=== PATIENT | male | born 1950 | race Caucasian/White ===

== ENCOUNTER → 2017-06-28 | Outpatient (CLI) | payer MEDICARE ==
--- NOTE | 2017-06-28 08:39 | CT ---
EXAMINATION TYPE: CT iac wo con DATE OF EXAM: 06/28/2017 COMPARISON: NONE HISTORY: Lt ear pain CT DLP: 150 mGycm. Automated Exposure Control for Dose Reduction was Utilized. TECHNIQUE: CT scan of internal auditory canal is performed without contrast, thin cut axial images ar e obtained, coronal reformatted images are also reviewed. FINDINGS: The external auditory canals are patent bilaterally. Mastoid air cells show no evidence of abnormal opacification bilaterally. The middle ear ossicles are symmetric and unremarkable. There is no evidence of suspicious surrounding soft tissue density to suggest cholesteatoma. The scutum is preserved bilaterally. The cochlea and the semicircular canals are symmetric and unremarkable. Ves tibular aqueduct and internal carotid canal appear unremarkable. Temporomandibular joints are maintained bilaterally. Visualized paranasal sinuses are grossly clear other than minimal mucosal thickening within the maxillary sinuses. There is slight leftward nasal se ptal deviation and a small leftward nasal spur. Visualized portion brain parenchyma is felt within no rmal limits, although the exam was not optimized for evaluation of the intracranial structures. Minim al atherosclerosis is seen of the internal carotid arteries. IMPRESSION: Minimal maxillary mucosal thickening, otherwise unremarkable internal auditory canal CT. No significant abnormality seen to account for patient's symptoms.
== END | disposition home or self-care (01) ==
LOC: RADCTMAIN 07:49
PROVIDERS: ATTEND Family Medicine
DX: J34.89 Other specified disorders of nose and nasal sinuses (principal); H92.02 Otalgia, left ear
CPT/HCPCS: 70480

== ENCOUNTER → 2017-09-06 | Outpatient (CLI) | payer MEDICARE ==
--- NOTE | 2017-09-06 14:18 | XR ---
EXAMINATION TYPE: XR cervical spine comp DATE OF EXAM: 09/06/2017 COMPARISON: NONE HISTORY: 67 year-old male chronic pain and stiffness, cervicalgia TECHNIQUE: 6 views FINDINGS: No predental space widening or prevertebral soft tissue swelling. There is facet arthropathy througho ut with grade 1 anterolisthesis at C4-C5. Moderate disc/endplate degenerative change mid to lower cer vical spine particularly from C5 through C7 levels. On the right, this results in moderate bony spondylotic neuroforaminal narrowing from C4 to C5 and C5 -C6 and possibly moderate to severe at C6-C7 and C7-T1. Mild at T3-C4. On the left, there may be severe bony neuroforaminal narrowing at C5-C6 and moderate at C6-C7 and C3- C4. There may be an additional grade 1 anterolisthesis at C7-T1 on the swimmer's view. No odontoid view. IMPRESSION: Moderate to advanced spondylotic change. Grade 1 anterolistheses at C5-C6 and C7-T1. Variable moderat e to severe neuroforaminal stenoses are suggested, particularly on the left.
== END | disposition home or self-care (01) ==
LOC: RADXRYALE 12:41
PROVIDERS: ATTEND Nurse Practitioner Family
DX: M43.13 Spondylolisthesis, cervicothoracic region (principal); M47.812 Spondylosis without myelopathy or radiculopathy, cervical region
CPT/HCPCS: 72050

== ENCOUNTER → 2018-03-01 | Outpatient (CLI) | payer MEDICARE ==
[2018-03-01 12:13] LABS: Basophils % (A) 0 %; Eosinophils # (A) 0.1 k/uL (0-0.7); Eosinophils % (A) 2 %; HCT 41.6 % (39.0-53.0); HGB 13.6 gm/dL (13.0-17.5); Lymphocytes # (A) 2.5 k/uL (1.0-4.8); Lymphocytes % (A) 27 %; MCH 28.6 pg (25.0-35.0); MCHC 32.7 g/dL (31.0-37.0); MCV 87.5 fL (80.0-100.0); Mean Platelet Volume 6.6; Monocytes # (A) 0.4 k/uL (0-1.0); Monocytes % (A) 4 %; Neutrophils # (A) 5.9 k/uL (1.3-7.7); Neutrophils % (A) 64 %; Platelet Count 443 k/uL (150-450); RBC 4.75 m/uL (4.30-5.90); RDW 13.1 % (11.5-15.5); WBC 9.1 k/uL (3.8-10.6)
[2018-03-01 12:14] LABS: Appearance,Urine Clear (Clear); Bilirubin,Urine Negative (Negative); Blood,Urine Negative (Negative); Color,Urine Yellow; Glucose,Urine (UA) Negative (Negative); Ketones,Urine Negative (Negative); Leukocyte Esterase,Urine Negative (Negative); Nitrite,Urine Negative (Negative); PH, Urine 5.5 (5.0-8.0); Protein,Urine Negative (Negative); Specific Gravity,Urine 1.017 (1.001-1.035); Urobilinogen,Urine <2.0 mg/dL (<2.0)
[2018-03-01 12:25] LABS: Anion Gap 11 mmol/L; Blood Urea Nitrogen 11 mg/dL (9-20); Calcium 10.1 mg/dL (8.4-10.2); Carbon Dioxide 28 mmol/L (22-30); Chloride 104 mmol/L (98-107); Glucose 192 mg/dL (74-99); Sodium 143 mmol/L (137-145)
== END | disposition home or self-care (01) ==
LOC: LABPAT 11:18
PROVIDERS: ATTEND Orthopaedic Surgery Orthopaedic Surgery of the Spine
DX: Z01.812 Encounter for preprocedural laboratory examination (principal); M48.02 Spinal stenosis, cervical region
CPT/HCPCS: 36415; 80048; 81003; 85025; 85610; 85730; 86850; 86900; 86901

== ENCOUNTER 2018-03-09 08:49 | Inpatient (IN) | payer MEDICARE ==
[2018-02-24 10:55] VITALS: BMI 34.4
[~2018-03-09 08:49] MED LIST: BACITRACIN 50,000 UNIT, POLYMYXIN B 500,000 UNIT in SODIUM CHLORIDE 0.9% IRRIGATIO 1,00... IRRIGATION ONE; HYDROmorphone 0.5 MG/0.5 ML SYRINGE IVP PRN; MORPHINE SULFATE 4 MG/ML SYRINGE IV PRN; ONDANSETRON 4 MG/2 ML VIAL IVP PRN; ceFAZolin IN SWFI 2 GM/20 ML SYRINGE IVP ONE
[2018-03-09] MEDS: LACTATED RINGERS 1,000 ML IV SCH (10:17)
[2018-03-09] MEDS ORDERED: LIDOCAINE 1% 20 ML VIAL (10MG/ML) FOR IV START INTRADERMA ONE (10:18)
[2018-03-09] MEDS ORDERED: SUCCINYLCHOLINE CHLORIDE 100 MG/5 ML SYR IV ONE (11:56)
[2018-03-09] MEDS ORDERED: ROCURONIUM BROMIDE 10 MG/ML 10 ML VIAL IV ONE (11:56)
[2018-03-09] MEDS ORDERED: PROPOFOL 10 MG/ML 20 ML VIAL IV ONE (11:56)
[2018-03-09] MEDS ORDERED: PHENYLEPHRINE-0.9% NACL SYG 1 MG/10 ML SYRINGE ONE (11:56)
[2018-03-09] MEDS ORDERED: fentaNYL (PF) 50 MCG/ML 2 ML AMP ONE (11:56)
[2018-03-09] MEDS ORDERED: MIDAZOLAM 2 MG/2 ML VIAL ONE (11:56)
[2018-03-09] MEDS ORDERED: LIDOCAINE 1% INJ 10MG/ML (20 ML MDV) ONE (11:56)
[2018-03-09] MEDS ORDERED: BUPIVACAINE (PF) 0.25% 30 ML VIAL SQ ONE (12:30)
[2018-03-09] MEDS ORDERED: THROMBIN (BOVINE) 5,000 UNIT VIAL TOPICAL ONE (12:30)
[2018-03-09] MEDS ORDERED: GELATIN SPONGE,ABSORB (LARGE) 1 EACH SPONGE MISCELLANE ONE (12:30)
[2018-03-09] MEDS ORDERED: LACTATED RINGERS 1,000 ML IV ONE (14:05)
[2018-03-09] MEDS ORDERED: DIAZEPAM 5 MG TAB PO PRN (14:17)
[2018-03-09] MEDS ORDERED: MORPHINE SULFATE 4MG/4ML SYRG IVP PRN ×2 (14:17)
[2018-03-09] MEDS ORDERED: BENZOCAINE/MENTHOL LOZENG 1 EACH LOZENGE MUCOUS MEM PRN (14:17)
[2018-03-09] MEDS ORDERED: MAGNESIUM HYDROXIDE 2,400 MG/10 ML CUP PO PRN (14:17)
[2018-03-09] MEDS ORDERED: ACETAMINOPHEN TAB 325 MG TAB PO PRN (14:19)
[2018-03-09] MEDS ORDERED: ONDANSETRON 4 MG/2 ML VIAL IVP PRN (14:19)
[2018-03-09] MEDS ORDERED: BENZONATATE 100 MG CAP PO PRN (14:20)
[2018-03-09] MEDS ORDERED: HYDROcodone/APAP 7.5-325MG 1 EACH TAB PO PRN (14:20)
--- NOTE | 2018-03-09 14:26 | P.OP ---
Date of Procedure: 03/09/18 Preoperative Diagnosis: Cervical stenosis C 4 5 C5 6 C6 7 Spondylolisthesis C4 5 Herniated nucleus pulposis C5 6 C6 7 Neck pain with upper extremity radiculopathy Degenerative disc disease Postoperative Diagnosis: Same Anesthesia: GETA Pathology: none sent Condition: stable Disposition: PACU Description of Procedure: BRIEF OPERATIVE NOTE Preoperative Diagnosis: Cervical stenosis C4 5 C5 6 C6 7, spondylolisthesis C4 5 , degenerative disc disease C4 5 C5 6 C6 7, herniated nucleus poses C5 6 C6 7, neck pain with upper extremity radiculopathy Postoperative Diagnosis: Same Procedure: Anterior cervical decompression with discectomy and fusion C4 5 C5 6 C6 7 Placement of interbody graft C4 5 C5 6 C6 7 Application of anterior cervical plateC4 5 C5 6 C6 7 Surgeon: Dr. Suresh Dramatic Art Teacher: Victor Hugo Butterfield is present throughout the entire the case persistence during positioning, dissection, exposure, visualization, and all crucial elements of the case as well as closure. Anesthesia: General anesthesia Estimated blood loss: Approximately 75 mL Complications: None apparent Components implanted: K2M [place] anterior cervical plate system with 8 screws measuring 3.5 mm with Vikos interbody allograft bone graft Di sposition: To recovery room in good stable condition. OPERATIVE INDICATIONS The patient has had long-standing issues in their neck and upper extremities. he was found have a dynamic spinal listhesis C4 5 with severe disc degeneration C4 5 C5 6 C6 7 and herniation and her stenosis at C4 5 C5 6 and C6 7. The sinus correlated well with his neck and upper extremity symptoms. He was having worsening of his symptoms despite conservative treatment. The patient has been through conservative treatment. We discussed various treatment options including surgery, and the patient wishes to proceed with surgery We discussed the risk, patient's alternatives and benefits of surgery including but not limited to, risk of bleeding risk of infection, risk of need for further surgery, risk of decreased, loss of motion, muscle function, malunion nonunion, hardware failure, nerve damage, paralysis, heart attack, and . OPERATIVE SUMMARY After discussing all the risks, patient alternatives and benefits at length, the patient elected to proceed with surgical intervention, signed informed consent, and presented for their procedure. The patient was seen and examined in the preoperative holding area and the surgical site was marked. The patient was given antibiotics and brought to the operating room. The patient was positioned on the operating room table in a supine position being careful to pad any bony prominences and pressure points. The patient was sedated and intubated by anesthesia in standard fashion. Once the airway and C- spine were stabilized the patient's arms were padded and tucked at her side, with her shoulders gently taped. The head was placed in a donut pad with the neck in good neutral alignment and position. We were careful to maintain the patient's cervical spine and good neutral alignment and position throughout. The patient was prepped and draped in a normal standard fashion. An appropriate timeout and keystone protocol performed. We were able to proceed with the surgery. The local wound area was infiltrated with local anesthetic. An incision was made transversely approximately 2-1/2 cm over the appropriate levels C4 5 C5 6 C6 7. Dissection was taken down subcutaneously to the level of the platysma which was split in line with its fibers. Dissection was taken with a carotid approach, with the trachea and esophagus medial and the carotid sheath laterally. We dissected down to the anterior surface of the vertebral bodies. Intraoperative x-ray was taken which showed a marker at the appropriate levelat C5 6 . With the appropriate level positively confirmed, we were able to proceed with discectomy at the appropriate levels. All of the operative levels were exposed appropriately. The patient had all their twitches back, and there was no evidence of recurrent laryngeal issue. The wound was copiously irrigated and suctioned dry as had been done periodically throughout the case. At the appropriate level/levels, C4 5 C5 6 C6 7 I established an annulotomy with an 11 blade scalpel. A discectomy was performed with a combination of pituitary rongeurs, curettes, a high-speed bur, and Kerrison rongeurs. The posterior longitudinal ligament was taken down as were any posterior osteophytes. note was made of severe disc degeneration particular at C5 6 and C6 7 with disc herniation. There is evidence of stenosis at each level. I was able to take down the compression centrally and at the bilateral neural foramen at each of the levels starting at C4 5 and then at C5 6 and then at C6 7. This gave good central and bilateral foraminal decompression. There is no evidence of any dural tear or leak. The endplates were prepared with a high-speed bur. With the endplates in good parallel position, I was able to size for the appropriate size interbody graft. The wound was irrigated and suctioned dry the graft was prepared and malleted into position. It had good alignment and position with the anterior surface flush with the anterior surface of the vertebral bodies. This was done similarly the appropriate levels C4 5 C5 6 C6 7. With the grafts intact, I was able to measure and contour and appropriate sized plate. The plate was positioned at the midline over the appropriate levelsC4 5 C5 6 C6 7. Screw holes were established with a hand drill and drill guide. Screws were placed in good alignment and position with excellent bony purchase. They were seated under the locking device. The construct was checked and found to be stable. Intraoperative x-ray was taken which showed good alignment and position of the implants at the appropriate levels. There was no evidence of any dural tear or leak. Good hemostasis was maintained. The wound was copiously irrigated and suctioned dry as had been done periodically throughout the case. The platysma was closed with absorbable suture. The subcutaneous tissue was closed. The subcuticular tissue was closed with absorbable suture. The wound was cleaned and dried and dressed appropriately. A soft cervical collar was placed appropriately. The patient was woken up by anesthesia, extubated, transferred back gently to their hospital bed and brought to the recovery room in good stable condition. The patient will be admitted to the hospital for appropriate postoperative care , medical management and monitoring. We will continue to follow them closely about the postoperative course.
--- NOTE | 2018-03-09 14:29 | XR ---
EXAMINATION TYPE: XR cervical spine 1V DATE OF EXAM: 03/09/2018 COMPARISON: NONE HISTORY: Hardware placement TECHNIQUE: Cross table cervical spine FINDINGS: Exam is limited due to the patient's shoulders. A plate is present starting at C4 level ext ending to the C5 level. The lower aspect cannot be visualized. Note is made of an endotracheal tube. IMPRESSION: 1. Placement of an anterior cervical fusion plate. The lower portion cannot be visualized due to antonio ulder artifact.
--- NOTE | 2018-03-09 14:37 | XR ---
EXAMINATION TYPE: XR cervical spine 1V DATE OF EXAM: 03/09/2018 COMPARISON: NONE HISTORY: Hardware placement TECHNIQUE: Lateral cervical spine FINDINGS: Metallic device is directed towards C5-6 disc space. Shoulders creating artifact beginning at approximately this level. IMPRESSION: 1. Metallic needle directed towards the C5-6 disc space.
[2018-03-09 14:47] VITALS: RESP 16
[2018-03-09] MEDS: fentaNYL (PF) 50 MCG/ML 2 ML AMP IVP ONE ×2 (15:05→15:34)
[2018-03-09] MEDS: diphenhydrAMINE 50 MG/ML 1 ML VIAL IVP ONE ×2 (15:06→15:34)
[2018-03-09] MEDS: SODIUM CHLORIDE 0.9% 1,000 ML IV SCH (16:42)
[2018-03-09] MEDS: HYDROcodone/APAP 5-325MG 1 EACH TAB PO PRN (19:20)
[2018-03-09] MEDS: ceFAZolin IN SWFI 2 GM/20 ML SYRINGE IVP SCH (19:58)
[2018-03-10] MEDS: SODIUM CHLORIDE 0.9% 1,000 ML IV SCH (01:55)
[2018-03-10] MEDS: LACTATED RINGERS 1,000 ML IV SCH (01:56)
[2018-03-10] MEDS: HYDROcodone/APAP 5-325MG 1 EACH TAB PO PRN (03:35)
[2018-03-10] MEDS: ceFAZolin IN SWFI 2 GM/20 ML SYRINGE IVP SCH (03:35)
[2018-03-10 08:15] VITALS: BP 135/79; PULSE 79; TEMP 98.8
[2018-03-10] MEDS ORDERED: B COMPLEX-VIT C-VIT E-ZINC 1 EACH TAB PO SCH (09:00)
[2018-03-10] MEDS ORDERED: SENNOSIDES-DOCUSATE SODIUM 1 EACH TAB PO SCH (09:00)
[2018-03-10] MEDS ORDERED: ATENOLOL 50 MG TAB PO SCH (09:00)
[2018-03-10] MEDS ORDERED: CHOLECALCIFEROL 1,000 UNIT TAB PO SCH (09:00)
--- NOTE | 2018-03-10 10:10 | P.DS ---
Providers Date of admission: 03/09/18 08:49 Attending physician: Agnieszka Suresh Primary care physician: [facility] Course: The patient presented on the day of admission as per his operative note. She underwent anterior cervical decompression with discectomy and fusion at C4 5 C5 6 and C6 7 for his spondylolisthesis, spinal stenosis and disc degeneration with herniation and upper extremity radiculopathy. He feels he is making good progress. His arm has had some slight improvement though he still has some numbness over his left arm. He is able to ambulate and he is tolerating his soft diet appropriately. His pains controlled with oral medications. Physical Exam The incision site is clean dry and intact. There is no erythema no drainage. There is no purulence no evidence of infection. His neck is soft and supple. There is no drainage on the dressing. Abdomen soft and nontender. Chest has good excursion with deep inspiration and expiration. The patient has active and passive range of motion intact at the upper and lower extremities. There is no acute change in neurologic status. He has good strength and range of motion of his upper extremity's bilaterally Hospital Course Postoperative day #1 status post anterior cervical decompression with discectomy and fusion at C4 5 C5 6 and C6 7 for his cervical stenosis with disc degeneration and spinal listhesis with upper extremity radiculopathy. He is making some progress with surgery thus far and feels comfortable with his recovery process. The patient has been making good progress postoperatively. They have completed the prophylactic antibiotics without any signs or symptoms of infection. The patient has been able to advance their diet, and is tolerating diet adequately. The pain was initially controlled with IV medications and is now controlled appropriately with oral medications. The patient has been able to increase their mobilization. The patient has progressed appropriately. I think they are in good stable condition for discharge today. They will be sent home with appropriate prescriptions. I answered their questions to the best of my ability in a language that they can understand and they are agreeable with the plan. They will follow up as directed in approximately 2 weeks or sooner if he is having any problems. Patient Condition at Discharge: Good Plan - Discharge Summary Discharge Rx Participant: Yes New Discharge Prescriptions: No Action Vitamin B Complex 1 cap PO DAILY HYDROcodone/APAP 7.5-325MG [[place] 7.5-325] 1 tab PO TID PRN PRN Reason: Pain Benzonatate [Tessalon Perles] 100 mg PO DAILY PRN PRN Reason: Cough Cholecalciferol (Vitamin D3) [Vitamin D3] 2,000 unit PO DAILY Atenolol [Tenormin] 50 mg PO DAILY Discharge Medication List Vitamin B Complex 1 cap PO DAILY 12/03/14 [History] HYDROcodone/APAP 7.5-325MG [[place] 7.5-325] 1 tab PO TID PRN 12/04/14 [History] Benzonatate [Tessalon Perles] 100 mg PO DAILY PRN 02/24/18 [History] Cholecalciferol (Vitamin D3) [Vitamin D3] 2,000 unit PO DAILY 02/24/18 [History] Atenolol [Tenormin] 50 mg PO DAILY 03/09/18 [History] Follow up Appointment(s)/Referral(s): Agnieszka Suresh DO [Doctor of Osteopathic Medicine] - 2 Weeks Activity/Diet/Wound Care/Special Instructions: keep site clean may shower with waterproof dressing intact. Do not soak in a tub. On Wednesday May shower with area uncovered, but leave Steri-Strips intact and allow them to fray off on their own. Avoid heavy or rigorous activity No overhead work No repetitive bending twisting or lifting May ambulate to tolerance Discharge Disposition: HOME SELF-CARE
== END 2018-03-10 11:15 | disposition home or self-care (01) | DRG 473 ==
LOC: 2ORMAIN 08:49 → 3SUR 15:57
PROVIDERS: ADMIT Orthopaedic Surgery Orthopaedic Surgery of the Spine; ATTEND Orthopaedic Surgery Orthopaedic Surgery of the Spine
PROC: 0RG20A0 Fusion of 2 or more Cervical Vertebral Joints with Interbody Fusion Device, Anterior Approach, Anterior Column, Open Approach (ICD-10-PCS; principal; 2018-03-09 10:45)
PROC: 0RG40A0 Fusion of Cervicothoracic Vertebral Joint with Interbody Fusion Device, Anterior Approach, Anterior Column, Open Approach (ICD-10-PCS; principal; 2018-03-09 10:45)
PROC: 0RT50ZZ Resection of Cervicothoracic Vertebral Disc, Open Approach (ICD-10-PCS; principal; 2018-03-09 10:45)
DX: M48.02 Spinal stenosis, cervical region (principal); I10 Essential (primary) hypertension; M43.12 Spondylolisthesis, cervical region; M50.121 Cervical disc disorder at C4-C5 level with radiculopathy; Z79.891 Long term (current) use of opiate analgesic; Z79.899 Other long term (current) drug therapy; Z88.0 Allergy status to penicillin; Z91.041 Radiographic dye allergy status; Z96.653 Presence of artificial knee joint, bilateral; Z82.49 Family history of ischemic heart disease and other diseases of the circulatory system; Z87.891 Personal history of nicotine dependence; Z88.5 Allergy status to narcotic agent; Z91.013 Allergy to seafood; M79.7 Fibromyalgia
CPT/HCPCS: 72020; 86850; 86900; 86901

== ENCOUNTER → 2019-11-14 | Outpatient (CLI) | payer MEDICARE ==
--- NOTE | 2019-11-14 11:32 | FL ---
EXAMINATION TYPE: FL barium swallow w video DATE OF EXAM: 11/14/2019 MODIFIED SWALLOW / DEGLUTITION STUDY CLINICAL HISTORY: Dysphagia since neck surgery March 09, 2018. TECHNIQUE: Deglutition study is performed utilizing thin liquid barium, honey and nectar thick liqui d barium, barium thick applesauce, and barium coated cracker. Total 1 minute 14 seconds of fluoroscop ic time provided. 0 spot images saved to PACS. COMPARISON: None. FINDINGS: The oral and pharyngeal phases show satisfactory initiation with slightly diminished epiglo ttic inversion and prominent proximal trachea noted. Satisfactory mastication is seen with solid moda lities tested. There are 2 episodes of deep penetration with thin liquid barium. Other modalities sh owed no penetration or aspiration. No significant pharyngeal residue was appreciated. Partial visuali zation of surgical change cervical spine beginning C4 level. IMPRESSION: 2 episodes of penetration with thin liquid barium. No other aspiration is observed. Plea se refer to speech therapist notes for further details if necessary.
== END | disposition home or self-care (01) ==
LOC: RADFLMAIN 10:39
PROVIDERS: ATTEND Family Medicine
DX: R13.10 Dysphagia, unspecified (principal)
CPT/HCPCS: 74230

== ENCOUNTER 2019-12-19 07:30 | Day surgery (SDC) | payer MEDICARE ==
[2019-12-15 15:18] VITALS: BMI 38.6
[~2019-12-19 07:30] MED LIST changes: -BACITRACIN 50,000 UNIT, POLYMYXIN B 500,000 UNIT in SODIUM CHLORIDE 0.9% IRRIGATIO 1,00... IRRIGATION ONE; -HYDROmorphone 0.5 MG/0.5 ML SYRINGE IVP PRN; +LACTATED RINGERS 1,000 ML IV SCH; +LIDOCAINE 1% 20 ML VIAL (10MG/ML) FOR IV START INTRADERMA PRN; -MORPHINE SULFATE 4 MG/ML SYRINGE IV PRN; -ONDANSETRON 4 MG/2 ML VIAL IVP PRN; -ceFAZolin IN SWFI 2 GM/20 ML SYRINGE IVP ONE
[2019-12-19 08:02] VITALS: TEMP 97.6
[2019-12-19] MEDS ORDERED: PROPOFOL 10 MG/ML 20 ML VIAL IV ONE (08:03)
--- NOTE | 2019-12-19 08:38 | P.PCN ---
Date of Procedure: 12/19/19 Description of Procedure: BRIEF HISTORY: Patient is a 69-year-old male presenting for outpatient colonoscopy for evaluation after positive Cologard. Patient reports last colonoscopy approximately 5 years ago and he was told of hemorrhoids. He denies any change in bowel habits, blood per rectum or abdominal pain. No family history of colon cancer. Patient had testing with Cologard which was positive and follows up for further evaluation. PROCEDURE PERFORMED: Colonoscopy with polypectomy and Endo Clip placement. PREOPERATIVE DIAGNOSIS: Positive Cologard, last colonoscopy 5 years ago per his recollection and normal. ESTIMATED BLOOD LOSS: Minimal. IV sedation per Anesthesia. PROCEDURE: After informed consent was obtained, the patient, was brought into the endoscopy unit. IV sedation was administered by Anesthesia under continuous monitoring. Digital rectal examination was normal. Initially the Olympus CF-190 flexible video colonoscope was then inserted in the rectum, gradually advanced into the cecum without any difficulty. Careful examination was performed as the scope was gradually being withdrawn. Ileocecal valve and the appendiceal orifice were visualized and appeared normal. Prep was excellent. Mucosa of the cecum, ascending colon, transverse colon, descending colon, sigmoid colon, and rectum appeared normal. Diminutive 2 mm transverse colon polyp removed with cold forcep polypectomy. Large pedunculated 15 mm sigmoid colon polyp located at 30 cm from the anal verge removed with hot snare polypectomy with Endo Clip placed at the site due to the size of the polyp and to achieve hemostasis. No bleeding noted after Endo Clip placement. Diminutive 3 mm polyp adjacent to the pedunculated polyp also removed with cold snare polypectomy. Multiple small diverticula noted in the sigmoid colon. Retroflexion was performed in the rectum and no lesions were seen. The patient tolerated the procedure well. IMPRESSION: Large pedunculated sigmoid colon polyp removed with hot snare polypectomy with Endo Clip placed at the site for hemostasis. Small sigmoid polyp adjacent to the pedunculated polyp removed with cold snare polypectomy. Diminutive transverse colon polyp removed with cold forcep polypectomy. Mild sigmoid diverticulosis. RECOMMENDATIONS: Findings of this examination were discussed with the patient and his . Okay to resume diet. Okay to resume medications. Would recommend repeat colonoscopy in 3 years, pending findings from pathology from polypectomy.
[2019-12-19 08:55] VITALS: BP 114/60; PULSE 74; RESP 20
== END 2019-12-19 09:38 | disposition home or self-care (01) ==
LOC: ORWHC2ENDO 07:30
PROVIDERS: ATTEND Internal Medicine
DX: D12.3 Benign neoplasm of transverse colon (principal); D12.5 Benign neoplasm of sigmoid colon; K57.30 Diverticulosis of large intestine without perforation or abscess without bleeding; I10 Essential (primary) hypertension; E78.5 Hyperlipidemia, unspecified; M19.90 Unspecified osteoarthritis, unspecified site; M79.7 Fibromyalgia; E66.01 Morbid (severe) obesity due to excess calories; Z82.49 Family history of ischemic heart disease and other diseases of the circulatory system; Z87.891 Personal history of nicotine dependence; Z91.041 Radiographic dye allergy status; Z88.0 Allergy status to penicillin; Z91.013 Allergy to seafood; Z88.5 Allergy status to narcotic agent; Z79.891 Long term (current) use of opiate analgesic; Z79.899 Other long term (current) drug therapy; Z90.49 Acquired absence of other specified parts of digestive tract; Z96.653 Presence of artificial knee joint, bilateral; Z98.890 Other specified postprocedural states; Z98.1 Arthrodesis status; Z68.38 Body mass index [BMI] 38.0-38.9, adult
CPT/HCPCS: 45385; 45380; 88305; J2704; 45382